=== PATIENT | male | born 1990 | race Caucasian/White ===

== ENCOUNTER 2016-10-20 04:22 | Emergency (ER) | payer OTHER ==
--- NOTE | 2016-10-20 06:38 | ER Document Report ---
ED GI/ - General Information source: Patient TRAVEL OUTSIDE OF THE [place] IN LAST 30 DAYS: No - HPI Patient complains to provider of: Other - Right Scrotal Pain Onset: Other - 2 days ago (10/18/2016) Timing/Duration: Sudden, Persistent Sexual history: Active - one partner Exacerbated by: Other - General Chief Complaint: Testicular Pain Stated Complaint: TESTICULAR PAIN Notes: Patient is a 25 y/o male presenting to the emergency department concerned of intermittent right scrotal pain for the past few months, but became acutely worse 2 days ago. Patient states that he had a vasectomy at [facility] this past summer (2015), and since then he has been back to [facility] 3 times for this issue. Patient was given antibiotics which he states helped after "weeks". Patient thought that he might have a hernia. Patient denies pain anywhere else or any other symptoms. (RIVAS EASON) Past Medical History - General Information source: Patient - Social History Smoking Status: Unknown if Ever Smoked Cigarette use (# per day): No Chew tobacco use (# tins/day): No Lives with: Spouse/Significant other Family History: Reviewed & Not Pertinent Patient has suicidal ideation: No Patient has homicidal ideation: No Past Surgical History: Reports: Other - Hx Vasectomy Review of Systems - Review of Systems Constitutional: No symptoms reported EENT: No symptoms reported Cardiovascular: No symptoms reported Respiratory: No symptoms reported Gastrointestinal: No symptoms reported Genitourinary: See HPI, Pain - Right scrotum Male Genitourinary: No symptoms reported Musculoskeletal: No symptoms reported Skin: No symptoms reported Hematologic/Lymphatic: No symptoms reported Neurological/Psychological: No symptoms reported -: Yes All other systems reviewed and negative Physical Exam - General General appearance: Alert - HEENT Head: Normocephalic, Atraumatic Eyes: Normal Pupils: PERRL - Respiratory Respiratory status: No respiratory distress Chest status: Nontender Breath sounds: Normal Chest palpation: Normal - Cardiovascular Rhythm: Regular Heart sounds: Normal auscultation Murmur: No - Abdominal Inspection: Normal Distension: No distension Bowel sounds: Normal Tenderness: Nontender Organomegaly: No organomegaly - Genitourinary Tenderness: No: Testicle tender - Cord structure on the right is very tender to palpation. Varicocele felt on examination. No masses. - Back Back: Normal, Nontender - Extremities General upper extremity: Normal inspection, Nontender, Normal color, Normal ROM , Normal temperature General lower extremity: Normal inspection, Nontender, Normal color, Normal ROM , Normal temperature - Neurological Neuro grossly intact: Yes Cognition: Normal Orientation: AAOx4 Ml Coma Scale Eye Opening: Spontaneous Ml Coma Scale Verbal: Oriented Ml Coma Scale Motor: Obeys Commands Ml Coma Scale Total: 15 Speech: Normal - Psychological Associated symptoms: Normal affect, Normal mood - Skin Skin Temperature: Warm Skin Moisture: Dry Skin Color: Normal Scribe Documentation - Scribe Written by Scribe:: LILIAN ODELL 10/20/16 0636 Acting as scribe for: (LENA ACOSTA) Dr. Aocsta (RIVAS EASON)
[2016-10-20] MEDS ORDERED: OXYCODONE-ACETAMINOPHEN 5-325 MG TABLET PO ONE (06:42)
[2016-10-20] MEDS ORDERED: NAPROXEN 250 MG TABLET PO ONE (06:42)
[2016-10-20 06:45] LABS: APPEARANCE,URINE CLEAR; BILIRUBIN,URINE NEGATIVE (NEGATIVE); GLUCOSE, URINE NEGATIVE (NEGATIVE); KETONES,URINE NEGATIVE (NEGATIVE); LEUKOCYTE ESTERASE,URINE NEGATIVE (NEGATIVE); NITRITE,URINE NEGATIVE (NEGATIVE); PROTEIN,URINE NEGATIVE (NEGATIVE); URINE SPECIFIC GRAVITY 1.009; UROBILINOGEN,URINE NEGATIVE mg/dL (<2.0)
== END 2016-10-20 07:01 | disposition home or self-care (01) ==
LOC: ER 04:22
DX: I86.1 Scrotal varices (principal); N50.811 Right testicular pain
CPT/HCPCS: 76870; 81001; 93976; 99284